=== PATIENT | female | born 1980 | race Hispanic/Latino ===

== ENCOUNTER 2019-03-30 14:18 | Outpatient (CLI) | payer OTHER ==
--- NOTE | 2019-03-30 15:35 | MRI ---
EXAM: BRAIN MRI WITH AND WITHOUT CONTRAST: HISTORY: Symptomatic epilepsy and epileptic syndrome. COMPARISON: None FINDINGS: MRI BRAIN: Midline brain parenchymal structures are unremarkable. Normal T1 marrow signal intensity of the ebonie rium. Central arterial flow voids are maintained. Absent restricted diffusion. No parenchymal mass, mass effect or midline shift. Brain volume, age-appropriate. Cortical fuentes-white matter differentiation is preserved. Ventricles are patent and symmetric. No pathologic enhancement of the brain parenchyma. MRI OF THE INTERNAL AUDITORY CANALS: Adequate aeration of the sinuses and mastoid air cells. Symmetric signal intensity of the 5th, 7th, and 8th cranial nerve complexes. No abnormal enhancement. Appropriate signal intensity in both internal artery canals as well as inner ear structures. No abnor mal enhancement. There does appear to be vascular loop on the right side, extending into the medial aspect of the right internal artery canal. IMPRESSION: 1. No pathologic enhancement the brain parenchyma. 2. Adequate aeration of the sinuses and mastoid air cells 3. Vascular loop in the medial right internal auditory canal of uncertain significance. 4. Appropriate signal intensity of the cranial nerves, internal auditory canal and inner ear structu res. Transcribed Date/Time: 03/30/2019 3:54 PM
[2019-03-30] MEDS ORDERED: Gadobenate Dimeglumine 529 MG/1 ML (20ML VIAL) ONE (16:49)
== END 2019-03-30 14:19 | disposition home or self-care (01) ==
LOC: BICMRI 14:18
PROVIDERS: ATTEND Family Medicine
DX: G40.209 Localization-related (focal) (partial) symptomatic epilepsy and epileptic syndromes with complex partial seizures, not intractable, without status epilepticus (principal)
CPT/HCPCS: 70553; A9577

== ENCOUNTER 2021-04-23 07:53 | Outpatient (CLI) | payer OTHER | END 2021-04-23 07:54 | disposition home or self-care (01) | LOC: BICULT 07:53 | PROVIDERS: ATTEND Family Medicine | DX: R13.10 Dysphagia, unspecified (principal); R59.0 Localized enlarged lymph nodes; E04.1 Nontoxic single thyroid nodule | CPT/HCPCS: 76536 ==

== ENCOUNTER 2021-06-17 12:32 | Outpatient (CLI) | payer OTHER ==
[~2021-06-17 12:32] MED LIST: Iopamidol 370 76% 100 ML VIAL ONE
== END 2021-06-17 12:33 | disposition home or self-care (01) ==
LOC: CT 12:32
PROVIDERS: ATTEND Family Medicine
DX: R59.0 Localized enlarged lymph nodes (principal)
CPT/HCPCS: 70491; Q9967

== ENCOUNTER 2022-04-21 08:13 | Outpatient (CLI) | payer OTHER | END 2022-04-21 08:14 | disposition home or self-care (01) | LOC: BICULT 08:13 | PROVIDERS: ATTEND Family Medicine | DX: E04.2 Nontoxic multinodular goiter (principal) | CPT/HCPCS: 76536 ==

== ENCOUNTER 2022-06-11 09:09 | Outpatient (CLI) | payer OTHER | END 2022-06-11 09:10 | disposition home or self-care (01) | LOC: BICULT 09:09 | PROVIDERS: ATTEND Family Medicine | DX: R80.9 Proteinuria, unspecified (principal) | CPT/HCPCS: 76770 ==

== ENCOUNTER 2024-01-22 17:27 | Observation (INO) | payer OTHER ==
[2024-01-22 17:46] LABS: #Basophils 0.1 thou/uL (0.0-0.2); #Monocytes 0.6 thou/uL (0.11-0.59); %Basophils 0.6 % (0.0-1.0); %Eosinophils 0.2 % (0.0-10.0); %Lymphocytes 22.2 % (21.0-51.0); %Monocytes 6.4 % (0.0-10.0); %Neutrophils 70.4 % (42.0-75.0); Hemoglobin 14.6 g/dL (12.0-16.0); Mean Corpuscular Hemoglobin 29.5 pg (27.0-31.0); Mean Corpuscular Volume 86.9 fl (78.0-98.0); Mean Platelet Volume 9.4 fL (7.4-10.4); Platelet Count 307 10x3/uL (130-400); RBC Distribution Width 13.7 % (11.5-14.5); Red Blood Cell (RBC) Count 4.95 mill/uL (4.20-5.40); White Blood Cell (WBC) Count 9.9 10x3/uL (4.8-10.8)
[2024-01-22 18:03] LABS: ALT (SGPT) 15 U/L (8-55); AST (SGOT) 15 U/L (5-34); Albumin 4.8 g/dL (3.5-5.0); Alkaline Phosphatase 81 U/L (40-110); Anion Gap 11 mmol/L (10-20); BUN (Urea Nitrogen) 10 mg/dL (7.0-18.7); Bilirubin, Total 0.4 mg/dL (0.2-1.2); Calc. Creatinine Clearance 0 mL/min (70-130); Calcium 9.6 mg/dL (7.8-10.44); Carbon Dioxide 25 mmol/L (22-29); Chloride 104 mmol/L (98-107); Estimated GFR 80; Globulin 3.2 g/dL (2.4-3.5); Glucose 106 mg/dL (70-105); Potassium 4.1 mmol/L (3.5-5.1); Sodium 136 mmol/L (136-145)
[2024-01-22 18:06] LABS: Troponin I 0.041 ng/mL (< 0.028)
[2024-01-22] MEDS ORDERED: Lidocaine 1% w/Epinephrine 1:100K 20 ML VIAL ONE (18:13)
[2024-01-22] MEDS ORDERED: diphenhydrAMINE 50 MG/ML VIAL ONE (18:22)
[2024-01-22] MEDS ORDERED: Metoclopramide HCl 10 MG (2 mL) VIAL ONE (18:22)
[2024-01-22] MEDS ORDERED: Magnesium 2 GM/50 ML BAG (IN WATER) ONE (18:23)
[2024-01-22 19:47] LABS: Bacteria/HPF None Seen HPF (None Seen); Bilirubin Negative (Negative); Blood, Urine 1+ (Negative); CAUTI Indications for Culture Pelvic or flank pain; Clarity Clear (Clear); Glucose, Urine (Dipstick) Normal (Negative); Ketone, Urine Negative (Negative); Leukocyte Negative Leu/uL (Negative); Nitrite Negative (Negative); Protein, Urine (Dipstick) Negative (Neg-Trace); RBC/HPF 0-3 HPF (0-3); Specific Gravity, Urine 1.003 (1.002-1.036); Squamous Epithelial 0-3 HPF (0-3); Urobilinogen Normal mg/dL (Less than 2); WBC/HPF 0-3 HPF (0-3); pH, Urine 6.5 (5.0-9.0)
[2024-01-22 19:52] LABS: Urine Culture Reflex No No
[2024-01-22 21:03] LABS: Troponin I 0.026 ng/mL (< 0.028)
[2024-01-22] MEDS ORDERED: Enoxaparin 30 MG (0.3 mL) SYRINGE ONE (21:43)
[2024-01-22] MEDS ORDERED: Enoxaparin 40 MG (0.4 mL) SYRINGE ONE (21:44)
[2024-01-22] MEDS ORDERED: Ondansetron ODT 4 MG TAB PO PRN (23:06)
[2024-01-22 23:09] VITALS: BMI 28.9
[2024-01-22] MEDS ORDERED: Diclofenac 1% 50 GM TOPICAL GEL TP PRN (23:10)
[2024-01-22] MEDS: Atorvastatin Calcium 40 MG TAB PO SCH (23:43)
[2024-01-22 23:55] LABS: Hemoglobin A1c 5.6 % (4.0-6.0)
[2024-01-23 00:01] LABS: Cholesterol 181 mg/dl (< 200 Desired); HDL Cholesterol 61 mg/dL (>60 Neg Risk); LDL Cholesterol, Calculated 108 mg/dL; Magnesium 2.5 mg/dL (1.6-2.6); Triglycerides 58 mg/dL (Less than 150)
[2024-01-23 05:59] LABS: #Basophils 0.1 thou/uL (0.0-0.2); #Eosinphils 0.1 thou/uL (0.0-0.7); #Monocytes 0.6 thou/uL (0.11-0.59); #Neutrophils 3.2 thou/uL (1.40-6.50); %Basophils 0.8 % (0.0-1.0); %Eosinophils 1.6 % (0.0-10.0); %Lymphocytes 38.2 % (21.0-51.0); %Monocytes 9.7 % (0.0-10.0); %Neutrophils 49.4 % (42.0-75.0); Hemoglobin 12.3 g/dL (12.0-16.0); Mean Corpuscular HGB CONC 33.2 g/dL (32.0-36.0); Mean Corpuscular Hemoglobin 29.2 pg (27.0-31.0); Mean Corpuscular Volume 87.9 fl (78.0-98.0); Mean Platelet Volume 9.9 fL (7.4-10.4); Platelet Count 258 10x3/uL (130-400); RBC Distribution Width 14.2 % (11.5-14.5); Red Blood Cell (RBC) Count 4.21 mill/uL (4.20-5.40); White Blood Cell (WBC) Count 6.4 10x3/uL (4.8-10.8)
[2024-01-23 06:29] LABS: Anion Gap 15 mmol/L (10-20); BUN (Urea Nitrogen) 9 mg/dL (7.0-18.7); Calc. Creatinine Clearance 109 mL/min (70-130); Calcium 8.3 mg/dL (7.8-10.44); Carbon Dioxide 20 mmol/L (22-29); Chloride 109 mmol/L (98-107); Estimated GFR 102; Glucose 79 mg/dL (70-105); Potassium 3.6 mmol/L (3.5-5.1); Sodium 140 mmol/L (136-145)
[2024-01-23] MEDS: Aspirin Chewable 81 MG TAB PO SCH (08:24)
[2024-01-23] MEDS: levETIRAcetam 500 MG TAB PO SCH (08:24)
[2024-01-23] MEDS ORDERED: ADENOSINE 60 MG/20 ML SDV ONE (10:59)
[2024-01-23 19:50] VITALS: BP 116/78; TEMP 98.1
[2024-01-23] MEDS: Atorvastatin Calcium 10 MG TAB PO SCH (20:57)
[2024-01-23] MEDS: levETIRAcetam 500 mg/5 ml Oral Solution PO SCH (20:57)
[2024-01-23] MEDS: Acetaminophen 325 MG TAB PO PRN (20:58)
[2024-01-23] MEDS ORDERED: Atorvastatin Calcium 40 MG TAB PO SCH (21:00)
== END 2024-01-23 21:52 ==
LOC: ERS 17:27 → 2NO 22:33 → EEVIPCON 22:33
PROVIDERS: ADMIT Family Medicine; ATTEND Family Medicine
DX: R07.9 Chest pain, unspecified (principal); I08.1 Rheumatic disorders of both mitral and tricuspid valves; G40.909 Epilepsy, unspecified, not intractable, without status epilepticus; I10 Essential (primary) hypertension; E78.5 Hyperlipidemia, unspecified; Z79.899 Other long term (current) drug therapy; Z88.5 Allergy status to narcotic agent
CPT/HCPCS: 36415; 70450; 71275; 78452; 80048; 80053; 80061; 80177; 81001; 83036; 83735; 83880; 84100; 84146; 84443; 84484; 85025; 93005; 93017; 93306; 95711; 95819; 96365; 96366; 96368; 96372; 96375; A9502; G0378; J0153; J1200; J1650; J2765; J3475